=== PATIENT | female | born 1940 | race Caucasian/White ===

== ENCOUNTER → 2016-05-31 | Day surgery (SDC) | payer MEDICARE, OTHER ==
[2016-05-30 10:42] VITALS: BMI 26.1
[~2016-05-31] MED LIST: BSS 500 ml-Vancomycin 10 mg-Phenylephrine 1 mg Irrigation IR ONE; CHONDROITIN SULFATE 0.5 ML/PFS INTRAOC ONE; DEXAMETHASONE 4 MG/ML VIAL IV PRN; DIAZEPAM 5 MG TAB PO PRN; FENTANYL 100 MCG/2 ML VIAL ONE; Hyaluronate Sodium (Provisc) 5.5 mg/0.55 ml syringe INTRAOC ONE; LABETALOL 20 MG/4 ML SYRINGE IV PRN; MIDAZOLAM 2 MG/2 ML VIAL ONE; ONDANSETRON HCL 4 MG/2 ML VIAL IV PRN; PHENYLEPHRINE 2.5% OPHTH SOLN 2 ML BOT OP EYE ONE; SCOPOLAMINE TRANSDERMAL PATCH TOP ONE; TETRACAINE 0.5% 2 ML OPHTH SOLN OP EYE ONE; TETRACAINE 0.5% 2 ML OPHTH SOLN OP EYE PRN; TROPICAMIDE 1% OPHTH SOLN 2 ML BOTTLE OP EYE ONE; Vancomycin 10 MG, Phenylephrine 1,000 MCG in Balanced Salt Solution 500 ML IO ONE; hydrALAZINE 20 MG/ML VIAL IV PRN
[2016-05-31 09:43] VITALS: TEMP 97.3
--- NOTE | 2016-05-31 09:45 | SC.ANESEVA ---
Anesthesia Eval & Plan ([facility]) - Providers Stated Procedure: right eye cataract surgery Surgeon:: Vy Zabala - Medications/Allergies Allergies: Allergies No Known Allergies Allergy (Verified 05/31/16 07:49) Home Medications: Home Medication List Multivit-Min/FA/Lycopene/Lut [Centrum Silver Tablet] 1 each PO DAILY 05/30/16 [ History] Terlton-3S/Dha/Epa/Fish Oil/D3 [Fish Oil + D3 Softgel] 1 each PO DAILY 05/30/16 [ History] Current Medication List: Reviewed - Focused Physical Exam NPO since: Since after Midnight Mallampati: Class I Thyromental Distance: Greater than 3 Neck: Full Range of Motion Dental: Normal - no significant findings Cardiovascular/Chest: Normal (RRR no mumurs or rubs.) Respiratory: Lungs clear. negative: Wheezing Any problems with anesthesia, including nausea and vomiting?: No Any relatives with a history of Malignant Hyperthermia?: No Prone to Motion Sickness: No Beta Louise given (if appropriate): N/A Other: Diagnoses COMBINED FORMS OF AGE-RELATED CATARACT, RIGHT EYE (05/31/16) Allergies Allergy/AdvReac Type Severity Reaction Status Date / Time No Known Allergies Allergy Verified 05/31/16 07:49 Home Medications Medication Instructions Recorded Last Taken Type Aspirin [Terrence Aspirin] 325 mg PO DAILY 04/07/16 Unknown History Cholecalciferol [Vitamin D] 1,000 units PO DAILY 04/07/16 Unknown History Citalopram (anti-depressant) 20 mg PO DAILY 04/07/16 05/31/16 History [Celexa] Docusate Sodium [Stool Softener] 100 mg PO BID 04/07/16 Unknown History Gluc 2Kcl/Chondr/Santos Hy/Hy AC 1 each PO DAILY 04/07/16 Unknown History [Glucosamine & Chondroitin Cap] Loratadine/Pseudoephedrine Sul 1 each PO DAILY 04/07/16 Unknown History [Claritin-D 12 Hour Tab SA] Losartan/Hydrochlorothiazide 1 each PO DAILY 04/07/16 05/31/16 History [Losartan-Hctz 100-12.5 mg Tab] Metoprolol Tartrate 25 mg PO DAILY 04/07/16 05/31/16 History Pravastatin [Pravachol] 40 mg PO HS 04/07/16 Unknown History Ranitidine HCl [Acid Control] 150 mg PO BID 04/07/16 05/31/16 History Multivit-Min/FA/Lycopene/Lut 1 each PO DAILY 05/30/16 Unknown History [Centrum Silver Tablet] Terlton-3S/Dha/Epa/Fish Oil/D3 [Fish 1 each PO DAILY 05/30/16 Unknown History Oil + D3 Softgel] Height and Weight Patient's height 5 ft 4 in Patient's weight 69.09 kg Weight (Calculated Kilograms) 69.090 BMI 26.1 Vital Signs Temperature 97.3 F L 05/31/16 09:32 Pulse Rate 53 L 05/31/16 09:37 Respiratory Rate 16 05/31/16 09:37 Blood Pressure 132/65 05/31/16 09:37 Pulse Oxygen Saturation 96 05/31/16 09:37 - Anesthetic Plan Anesthesia Type: MAC ASA Class: 3 - Focused Review of Systems Cardiac History: Yes: Hx Hypertension, Hx Abnormal Cholesterol/Hyperlipidemia, Hx Coronary Artery Bypass Graft (2010) HEENT: No: Other HEENT Problems Gastrointestinal: Yes: Hx Gastroesophageal Reflux Disease, Hx Colonoscopy No: Hx Gastrointestinal Disorders Neurological/Musculoskeletal: No: Hx Neurological Disorders Smoking Status: Never smoker Surgical History: Yes: CABG (2010), Cholecystectomy, Hip (left hip replacement) Other Surgical History: skin cancer
[2016-05-31 09:47] VITALS: BP 143/67; PULSE 55
--- NOTE | 2016-05-31 10:20 | HIMOPRPT ---
DATE OF PROCEDURE: 05/31/16 PREOPERATIVE DIAGNOSIS: Cataract Right eye. POSTOPERATIVE DIAGNOSIS: Cataract Right eye. PROCEDURE: Cataract extraction by phacoemulsification of the Right eye SURGEON: Vy Zabala MD. ANESTHESIA: IV Sedation/Topical. COMPLICATIONS: None. PRE-OPERATIVE EVALUATION: The patient has been examined and deemed medically stable for cataract extraction with no apparent need for inpatient observation; outpatient setting is appropriate. Patient appears to be oriented to time, place and person. PROCEDURE IN DETAIL: The correct eye confirmed by patient, doctor, staff and paperwork. The operative eye was then marked by the doctor in the preoperative area. Eye drops were instilled into the operative eye to dilate the pupil. The patient was transported to the operating room and was placed in the supine position. A time out was performed before the beginning of the procedure. The operative eye was prepped and draped in the usual sterile fashion for ophthalmic surgery, taking care to isolate the lashes from the surgical field. Topical anesthetic drops were instilled into the operative eye. A lid speculum was placed. Betadine 5% was instilled in the operative eye for antiseptic. Microscope was brought into place for use throughout the case. The eye was inspected. A paracentesis incision was created with a side port knife. The temporal limbal corneal incision was performed with a sudha blade. Viscoelastic was injected into the anterior chamber. Capsule forceps were used to create a capsulorhexis. Hydrodissection was performed with BSS. The nucleus was removed by phacoemulsification. Phaco time is noted below. The remaining cortical material was removed by I&A. The capsular bag was noted to be intact and distended with viscoelastic. The Intraocular lens was placed into the intact bag and centered without difficulty. The remaining viscoelastic was removed by I&A. Betadine 5% drops were placed to inspect wound and for antisepsis. Inspection revealed watertight wounds. The lid speculum was removed. Postoperative medications were instilled into the eye and a shield secured over the operative eye. IOL Type [id number] SN [id number] IOL Power 23.5 CDE 7.48 Discharge Summary: There were no complications and the patient was taken to the postoperative area in good condition. Postoperative instructions and outpatient follow up time were given.
--- NOTE | 2016-05-31 10:25 | SC.ANESPOS ---
Post-Anesthesia Note LOC: Fully Awake Post-Anesthesia Assessment: Awake, Returned to Baseline, Hemodynamically Stable , Pain Control Adequate Phase I & II Recovery Complete: Yes Apparent Anesthesia Complication: No : N - Vital Signs Blood Pressure: 143/67 Pulse: 55 Resp Rate: 18 O2 Sat: 96 Temp: 97.3 F
== END ==
LOC: CPSC 07:16
PROVIDERS: ATTEND Ophthalmology
PROC: 08RJ3JZ Replacement of Right Lens with Synthetic Substitute, Percutaneous Approach (ICD-10-PCS; principal; 2016-05-31 09:15)
DX: H25.811 Combined forms of age-related cataract, right eye (principal); I10 Essential (primary) hypertension; I25.10 Atherosclerotic heart disease of native coronary artery without angina pectoris; E78.5 Hyperlipidemia, unspecified; K21.9 Gastro-esophageal reflux disease without esophagitis; F32.9 Major depressive disorder, single episode, unspecified; Z95.1 Presence of aortocoronary bypass graft; Z79.899 Other long term (current) drug therapy
CPT/HCPCS: 66984; A9270; J2250; J3010; V2632; J3490